=== PATIENT | male | born 1935 | race Caucasian/White ===

== ENCOUNTER 2017-12-15 11:04 | Emergency (ER) | payer MEDICARE, OTHER ==
[~2017-12-15] VITALS: Ht 175.3 cm; Wt 81.6 kg
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
--- NOTE | 2017-12-15 11:10 | NUR ---
MD JAMES AT BEDSIDE
--- NOTE | 2017-12-15 11:11 | NUR ---
PER PATIENT HIS TDAP IS UP TO DATE
--- NOTE | 2017-12-15 12:02 | NUR ---
WOUND CARE PROVIDED. PT WAITING FOR A RIDE HOME.
[2017-12-15 12:30] VITALS: BP 130/82
--- NOTE | 2017-12-15 12:30 | NUR ---
Patient discharged to home in stable condition. Written and verbal after care instructions given. Patient verbalizes understanding of instruction.
== END 2017-12-15 12:31 | disposition home or self-care (01) ==
LOC: ER 11:06
DX: S50.311A Abrasion of right elbow, initial encounter (principal); V87.8XXA Person injured in other specified noncollision transport accidents involving motor vehicle (traffic), initial encounter; Y93.55 Activity, bike riding; Y92.413 State road as the place of occurrence of the external cause; Y99.8 Other external cause status
CPT/HCPCS: 99283; A4606; A6402; Z7610